=== PATIENT | female | born 1960 | race Caucasian/White ===

== ENCOUNTER 2023-07-30 14:49 | Emergency (ER) | payer OTHER ==
[~2023-07-30] VITALS: Ht 172.7 cm; Wt 116.1 kg
[2023-07-30 14:56] VITALS: BP_SYST 117; PULSE 67; RESP 18; TEMP 98.3; O2SAT 94
[2023-07-30 15:44] LABS: BLOOD, URINE 3+ (NEGATIVE); GLUCOSE,URINE TRACE (NEGATIVE); KETONES,URINE TRACE (NEGATIVE); LEUKOCYTE ESTERASE ,URINE NEGATIVE (NEGATIVE); NITRITE, URINE NEGATIVE (NEGATIVE); PROTEIN URINE 2+ (NEGATIVE); UROBILINOGEN,URINE 0.2 (0.2-1.0)
[2023-07-30 15:51] LABS: BILIRUBIN,URINE 1+ (NEGATIVE); CLARITY/URINE CLOUDY (CLEAR); COLOR,URINE BROWNISH (YELLOW)
[2023-07-30 15:52] LABS: RBC,URINE 20-50 /HPF (0-3); WBC,URINE 0-3 /HPF (0-3)
[2023-07-30 15:53] LABS: BACTERIA,URINE MODERATE /HPF (None Seen); CALCIUM OXALATE CRYSTALS,UR 0-10 /HPF (None Seen); MUCUS,URINE None Seen /LPF (None Seen); URINE AMORPHOUS URATE 3+ /HPF (None Seen)
[2023-07-30 16:06] LABS: EOSINOPHILS # (AUTO) 0.1 K/uL (0.0-0.4); LYMPHOCYTES # (AUTO) 0.8 K/uL (1.0-5.5); NEUTROPHILS # (AUTO) 10.6 K/uL (1.8-7.7); WHITE BLOOD COUNT (AUTO) 11.8 K/uL (4.8-10.8)
[2023-07-30 16:14] LABS: BASOPHILS % (AUTO) 0.2 % (0.0-2.0); EOSINOPHILS % (AUTO) 0.8 % (0.0-4.0); HEMATOCRIT 42.2 % (36-48); HEMOGLOBIN 14.2 g/dL (12.0-16.0); LYMPHOCYTES % (AUTO) 7.2 % (20.5-51.5); MEAN CORPUSCULAR HEMOGLOBIN 31 pg (27-31); MEAN CORPUSCULAR HGB CONC 34 % (32-36); MEAN CORPUSCULAR VOLUME 91 fL (79.0-98.0); MONOCYTES # (AUTO) 0.3 K/uL (0.0-1.0); MONOCYTES % (AUTO) 2.3 % (1.7-9.3); NEUTROPHILS % (AUTO) 89.5 % (40.0-70.0); PLATELET COUNT (AUTO) 220 K/uL (130-430); RED BLOOD CELL COUNT(AUTO) 4.63 MIL/uL (4.2-6.2); RED CELL DISTRIBUTION WIDTH 13.7 % (9.0-15.0)
[2023-07-30 16:56] LABS: POTASSIUM 3.5 mmol/L (3.5-5.1); TOTAL BILIRUBIN 0.3 mg/dL (0.0-1.0); TOTAL PROTEIN, SERUM 7.3 g/dL (6.4-8.3)
[2023-07-30 17:17] LABS: ALBUMIN 3.5 g/dL (3.4-4.8); BILIRUBIN,DIRECT 0.1 mg/dL (0.0-0.3); CALCIUM 8.8 mg/dL (8.4-11.0); CREATININE 1.2 mg/dL (0.55-1.30)
[2023-07-30] MEDS: cephALEXin 500 MG CAPSULE PO ONE (19:13)
[2023-07-30] MEDS ORDERED: CEPH-548 PO (22:16)
[2023-07-30] MEDS ORDERED: ONDA-8 TL (22:16)
[2023-07-30] MEDS ORDERED: TRAM50TA2 PO (22:16)
[2023-07-30] MEDS: traMADol HCL HCL 50 MG TABLET (ULTRAM) PO ONE (22:34)
[2023-07-31 00:12] VITALS: BP_SYST 108; PULSE 70; RESP 18; TEMP 98; O2SAT 94
== END 2023-07-30 23:58 | disposition home or self-care (01) ==
LOC: SED 14:49
DX: R10.9 Unspecified abdominal pain (principal); R31.9 Hematuria, unspecified; J45.909 Unspecified asthma, uncomplicated; Z90.49 Acquired absence of other specified parts of digestive tract; Z98.890 Other specified postprocedural states
CPT/HCPCS: 36415; 71045; 80048; 80076; 81000; 81001; 81015; 83690; 85025; 93005; 99285